=== PATIENT | female | born 1980 | race Caucasian/White ===

== ENCOUNTER 2020-04-28 17:49 | Emergency (ER) | payer BC ==
[~2020-04-28] VITALS: Ht 157.5 cm; Wt 89.5 kg
[~2020-04-28 17:49] MED LIST: ADVIL200 MG PO; CARAFATE1 GM/10 ML PO; GAS-X80 MG PO; MACROBID100 MG PO; MVI; NEXIUM20 MG PO; NEXIUM40 MG PO; NO HOME MEDICATIONS; NORCO 325 MG-51 TAB PO; PEPCID 20MG TAB20 MG PO; PHENERGAN W/CO120 ML PO; PREVACID 30MG30 M1 PO
[2020-04-28 17:59] VITALS: BP 153/89
[2020-04-28] MEDS ORDERED: AMOXICILLIN 8751 TAB PO (19:01)
[2020-04-28 19:08] VITALS: PULSE 90
== END 2020-04-28 19:10 | disposition home or self-care (01) ==
LOC: COL.ER 17:49
DX: O9A.212 Injury, poisoning and certain other consequences of external causes complicating pregnancy, second trimester (principal); S61.431A Puncture wound without foreign body of right hand, initial encounter; Z3A.20 20 weeks gestation of pregnancy; W54.0XXA Bitten by dog, initial encounter

== ENCOUNTER 2020-09-17 06:05 | Inpatient (IN) | payer BC ==
[~2020-09-17] VITALS: Ht 157.6 cm; Wt 99.1 kg
[2020-09-17] VITALS (50 sets, daily range): BP systolic 102–159; BP diastolic 53–102; PULSE 70–116; TEMP 97.7–99.5
[~2020-09-17 06:05] MED LIST changes: +AMOXICILLIN 8751 TAB PO
[2020-09-17] MEDS ORDERED: PRILOSEC 20MG20 MG PO (06:18)
[2020-09-17] MEDS ORDERED: PRENATAL (06:19)
[2020-09-17 07:26] LABS: BASO # 0.1 (0.0-0.2); BASO % 0.5 % (0.0-2.0); EOS # 0.1 (0.0-0.7); EOS % 0.7 % (0-4.0); GRAN # 7.9 (1.4-6.5); GRAN % 75.3 % (42.2-75.2); HEMATOCRIT 37.6 % (37.0-47.0); HEMOGLOBIN 12.7 g/dl (12.5-16.0); LYMPH # 1.8 (1.2-3.4); LYMPH % 16.7 % (20.0-51.0); MEAN CELL VOLUME 91 fl (80.0-100.0); MEAN CORPUSCULAR HEMOGLOBIN 31 pg (27.0-31.0); MEAN CORPUSCULAR HGB CONC 34 g/dl (33.0-37.0); MEAN PLATELET VOLUME 10.2 fl (7.4-10.4); MONO # 0.6 (0.1-0.6); MONO % 5.8 % (1.7-9.3); PLATELET COUNT 249 K/mm3 (130-400); RED BLOOD COUNT 4.14 M/mm3 (4.10-5.30); REDCELL DISTRIBUTION WIDTH-CV 13.2 % (11.5-14.5)
--- NOTE | 2020-09-17 07:53 | NUR ---
ADMITE NOTE: PT. BROUGHT TO LDR6 BY HUMAN RESOURCES TECHNICIAN TEAM. UPON ENTRY THIS MORNING, PT. WAS IN BED WITH CLEAN GOWN ON AND MONITORS ON. STRIP REACTIVE. INTRODUCTION WAS MADE, IV WAS STARTED IN R. HAND (18G) AND CONSENTS WERE OBTAINED. ASSESSMENTS WERE COMPLETED AND PT. STATES NO COMPLAINTS AT THIS TIME. VITAL SIGNS WNL. WILL CONTINUE TO MONITOR PT. AND BEGIN INDUCTION PROCESS
--- NOTE | 2020-09-17 10:20 | NUR ---
EPIDURAL PLACEMENT: PT. REQUESTED EPIDURAL 0956: PT. SITTING ON SIDE OF BED 1000: ALEKSANDR ARRIAGA AT FOR EPIDURAL PLACEMENT; TO COMPLETED AT THIS TIME. PROCEDURE VERIFIED, NKDA. 1006: TEST DOSE GIVEN PT. TOLERATED PROCEDURE WELL. WILL MONITOR BLOOD PRESSURES AND PT. PAIN
--- NOTE | 2020-09-17 11:31 | NUR ---
HEART TONES: 1015: DIFFICULTY TRACING FHT DUE TO PT. SITTING UP FOR EPIDURAL
--- NOTE | 2020-09-17 11:58 | NUR ---
educated pt. on not pushing during ctx due to sve /-1 pt. states "I'm trying not to". discussed what pushing during ctx can cause if not fully dilated. pt. states understanding
[2020-09-18 01:07] VITALS: BP 114/66; PULSE 98; TEMP 97.8
[2020-09-18 04:00] VITALS: BP 105/58; PULSE 75; TEMP 98.9
[2020-09-18 07:10] VITALS: BP 120/61; PULSE 91; TEMP 98.4
--- NOTE | 2020-09-18 11:44 | NUR ---
[employer] responded to consult in the OB as patient answered "yes" to suicide risk assessment question, "have you wished you were or wished you would go to sleep and not wake up in the last month". Patient answered "no" to additional follow up suicide risk assessment questions. Father of baby, Derrell is at bedside during assessment. Patient and Derrell live together in [place] and patient has one other daughter, Age 12. Patient states her daughter is with her father while she is in the hospital. Patient states she feels like she has good supports in the area and all supplies needed for baby at home. SW provided [facility] Resource Guide and asked patient if she has applied for WIC. Patient is unsure if she would qualify but may consider applying anyway. 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 Patient advised that she has 12 weeks off available but may return to work sooner. Patient reports she works from home so will be able to stay home with baby. SW addressed patient's response to the suicide risk assessment question. Patient advised she has a history of anxiety and has been prescribed medication from her primary care physician, Dr. Fior Rooney. Patient states she is not having any current suicidal thoughts. Patient does not want to set up any mental health services at this time, however reports she has mental health services available to her through her employer. MAVERICK reviewed available mental health services in the area. Patient has no concerns about returning home at this time. MAVERICK collaborated the above information to Dr. Malik. MAVERICK made a report to [facility] (intake#[id number]) as patient may need follow up after discharge.
[2020-09-18 11:50] VITALS: BP 126/85; PULSE 93; TEMP 98.4
[2020-09-18 16:15] VITALS: BP 123/72; PULSE 78; TEMP 99.2
[2020-09-18 19:34] VITALS: BP 112/66; PULSE 88; TEMP 98.6
[2020-09-19 08:02] VITALS: BP 127/87; PULSE 82; TEMP 99
[2020-09-19] MEDS ORDERED: PERCOCET 325 MG1 TA2 PO (08:53)
[2020-09-19] MEDS ORDERED: IBU600 MG PO (08:53)
--- NOTE | 2020-09-19 17:11 | NUR ---
1630 DISCHARGE INSTRUCTIONS REVIEWED WITH PATIENT. PATIENT VERBALIZED UNDERSTANDING. 1650 ALL PERSONAL BELONGINGS GATHERED FROM PATIENT ROOM. PATIENT LEFT AMBULATORY, IN NO APPARENT DISTRESS AND ACCOMPANIED BY SPOUSE AND THIS RN.
== END 2020-09-19 16:50 | disposition home or self-care (01) | DRG 788 ==
LOC: LDR 06:05 → OB 18:30
PROVIDERS: ADMIT Obstetrics & Gynecology
PROC: 10D00Z1 Extraction of Products of Conception, Low, Open Approach (ICD-10-PCS; principal; 2020-09-17)
DX: O48.0 Post-term pregnancy (principal); O24.420 Gestational diabetes mellitus in childbirth, diet controlled; O99.02 Anemia complicating childbirth; D64.9 Anemia, unspecified; O99.344 Other mental disorders complicating childbirth; F41.9 Anxiety disorder, unspecified; F32.9 Major depressive disorder, single episode, unspecified; O77.0 Labor and delivery complicated by meconium in amniotic fluid; G89.29 Other chronic pain; M54.9 Dorsalgia, unspecified; Z90.49 Acquired absence of other specified parts of digestive tract; Z3A.40 40 weeks gestation of pregnancy; Z37.0 Single live birth
CPT/HCPCS: J0690; J1885; J2270; J2405; J2590; J7120